=== PATIENT | female | born 1940 | race Caucasian/White ===

== ENCOUNTER → 2017-08-30 | Outpatient (CLI) | payer OTHER | END | disposition home or self-care (01) | LOC: SHCH 11:06 | PROVIDERS: ATTEND Internal Medicine Cardiovascular Disease | DX: I10 Essential (primary) hypertension (principal); I71.2 Thoracic aortic aneurysm, without rupture; I34.2 Nonrheumatic mitral (valve) stenosis; I35.1 Nonrheumatic aortic (valve) insufficiency; R09.89 Other specified symptoms and signs involving the circulatory and respiratory systems | CPT/HCPCS: 93306 ==

== ENCOUNTER → 2017-10-13 | Outpatient (CLI) | payer OTHER ==
[~2017-10-13] MED LIST: IOPAMIDOL-370 100 ML VIAL IV ONE
== END ==
LOC: OIH 07:49
PROVIDERS: ATTEND Internal Medicine Cardiovascular Disease
DX: N20.0 Calculus of kidney (principal); I71.2 Thoracic aortic aneurysm, without rupture
CPT/HCPCS: 71275; 74174; Q9967 ×2

== ENCOUNTER → 2018-05-19 | Outpatient (CLI) | payer OTHER | END | disposition home or self-care (01) | LOC: SHCH 14:49 | PROVIDERS: ATTEND Internal Medicine Cardiovascular Disease | DX: I35.1 Nonrheumatic aortic (valve) insufficiency (principal); I70.0 Atherosclerosis of aorta; I25.10 Atherosclerotic heart disease of native coronary artery without angina pectoris | CPT/HCPCS: 93306 ==

== ENCOUNTER 2018-06-24 11:12 | Observation (INO) | payer OTHER ==
[~2018-06-24] VITALS: Ht 165.1 cm; Wt 61.9 kg
[2018-06-24 11:47] LABS: BASOPHILS % (AUTO) 0.2 % (0.0-5.0); HEMATOCRIT 42.2 % (36-48); LYMPHOCYTES % (AUTO) 6.2 % (21.0-51.0); MEAN CORPUSCULAR HEMOGLOBIN 32.3 pg (27.0-33.0); MEAN CORPUSCULAR HGB CONC 32.5 g/dL (32.0-36.0); MEAN CORPUSCULAR VOLUME 99.5 fL (79-99); MONOCYTES % (AUTO) 5.5 % (3.0-13.0); NEUTROPHILS % (AUTO) 88.1 % (40.0-77.0); PLATELET COUNT (AUTO) 189 K/uL (130-400); RED BLOOD CELL COUNT(AUTO) 4.24 MIL/uL (4.00-5.50)
[2018-06-24 11:53] LABS: POTASSIUM 4.6 mmol/L (3.5-5.1)
[2018-06-24 11:58] LABS: ALBUMIN 4.1 g/dL (3.5-5.0); BILIRUBIN,TOTAL 0.9 mg/dL (0.2-1.0); TOTAL PROTEIN, SERUM 8.3 g/dL (6.0-8.3)
[2018-06-24] MEDS ORDERED: SODIUM CHLORIDE 0.9% 1000ML 1,000 ML IV ONE ×2 (12:09→15:51)
[2018-06-24 12:26] LABS: LIPASE 175 U/L (114-286)
[2018-06-24 12:28] LABS: ALCOHOL, BLOOD < 3 mg/dL (0-10); AMMONIA < 3 umol/L (11-32)
[2018-06-24 12:35] LABS: APPEARANCE,URINE Turbid (CLEAR); BILIRUBIN,URINE Negative (NEGATIVE); COLOR,URINE Dark Yellow (YELLOW); GLUCOSE, URINE (UA) Negative (NEGATIVE); KETONES,URINE Trace mg/dL (NEGATIVE); LEUKOCYTE ESTERASE ,URINE Moderate (NEGATIVE); NITRATE,URINE Negative (NEGATIVE); OCCULT BLOOD,URINE Negative (NEGATIVE); PH,URINE 5.5 (5.0-8.0); PROTEIN,URINE POS 2+ (NEGATIVE)
[2018-06-24 12:40] LABS: AMPHET/METH SCREEN,URINE NEGATIVE (NEGATIVE); BARBITURATE SCREEN, URINE NEGATIVE (NEGATIVE); BENZODIAZEPINES SCREEN,URINE NEGATIVE (NEGATIVE); CANNABINOID SCREEN,URINE NEGATIVE (NEGATIVE); COCAINE SCREEN,URINE NEGATIVE (NEGATIVE); OPIATE SCREEN,URINE NEGATIVE (NEGATIVE); PHENCYCLIDINE SCREEN,URINE NEGATIVE (NEGATIVE)
[2018-06-24 13:00] LABS: BACTERIA,URINE Few /HPF (None Seen)
[2018-06-24 13:01] LABS: RBC,URINE 51-100 /HPF (0-1)
[2018-06-24] MEDS ORDERED: CEFTRIAXONE SODIUM 1 GM ONE (13:42)
[2018-06-24] MEDS ORDERED: SODIUM CHLORIDE 0.9% 100 ML IV ONE ×2 (13:43→15:39)
[2018-06-24] MEDS ORDERED: ZOSYN 3.375GM+NS 50ML 50 ML IV ONE (15:38)
[2018-06-24] MEDS ORDERED: ENOXAPARIN SODIUM 30 MG/0.3 ML SQ ONE (15:38)
[2018-06-24] MEDS ORDERED: ACETAMINOPHEN 325 MG TAB PO PRN ×2 (15:45)
[2018-06-24] MEDS ORDERED: SODIUM CHLORIDE 0.9% 1000ML 1,000 ML IV SCH (16:00)
[2018-06-24] MEDS: ZOSYN 3.375GM+NS 50ML 50 ML IV SCH (16:00)
[2018-06-24 16:35] VITALS: BP 138/85
[2018-06-24] MEDS ORDERED: BACL10TA PO (16:46)
[2018-06-24] MEDS ORDERED: PRAV80TA21 PO (16:46)
[2018-06-24] MEDS ORDERED: AMLO5TAB7 PO (16:46)
[2018-06-24] MEDS ORDERED: LABE200T5 PO (16:46)
[2018-06-24] MEDS ORDERED: MONT10TA24 PO (16:46)
[2018-06-24] MEDS ORDERED: OMEP40CA37 PO (16:46)
[2018-06-24 20:00] VITALS: BP 134/84
[2018-06-25 00:05] VITALS: BP 120/75
[2018-06-25 04:03] VITALS: BP 146/90
[2018-06-25 05:05] LABS: HEMATOCRIT 34.1 % (36-48); MEAN CORPUSCULAR HEMOGLOBIN 33.7 pg (27.0-33.0); MEAN CORPUSCULAR HGB CONC 33.6 g/dL (32.0-36.0); MEAN CORPUSCULAR VOLUME 100.1 fL (79-99); PLATELET COUNT (AUTO) 179 K/uL (130-400); RED BLOOD CELL COUNT(AUTO) 3.41 MIL/uL (4.00-5.50); WHITE BLOOD COUNT (AUTO) 9.6 K/uL (4.8-10.8)
[2018-06-25 05:25] LABS: CREATININE 1.6 mg/dL (0.5-1.5)
[2018-06-25 07:00] VITALS: BP 146/91
[2018-06-25] MEDS: FAMOTIDINE/PF 20 MG/2 ML VIAL IV SCH (10:32)
[2018-06-25] MEDS: ENOXAPARIN SODIUM 30 MG/0.3 ML SQ SCH (10:34)
[2018-06-25 11:00] VITALS: BP 121/75
[2018-06-25] MEDS ORDERED: BACLOFEN 10 MG TABLET PO PRN (12:00)
[2018-06-25] MEDS: ZOSYN 3.375GM+NS 50ML 50 ML IV SCH ×2 (12:24→16:00)
[2018-06-25 16:00] VITALS: BP 119/73
[2018-06-25] MEDS ORDERED: GUAIFENESIN-CODEINE 5 ML SYRUP ONE (19:00)
[2018-06-25] MEDS ORDERED: GUAIFENESIN-CODEINE 5 ML SYRUP PO PRN (19:00)
[2018-06-25] MEDS ORDERED: ATORVASTATIN CALCIUM 40 MG TABLET PO SCH (21:00)
[2018-06-25 21:08] VITALS: BP 137/87
[2018-06-26 01:22] VITALS: BP 148/93
[2018-06-26 01:23] VITALS: BP 133/87
[2018-06-26 01:25] VITALS: BP 148/93
[2018-06-26] MEDS: ZOSYN 3.375GM+NS 50ML 50 ML IV SCH (03:24)
[2018-06-26 05:42] VITALS: BP 135/88
[2018-06-26] MEDS ORDERED: PANTOPRAZOLE SODIUM 40 MG TABLET.DR PO ONE (06:24)
[2018-06-26] MEDS ORDERED: PANTOPRAZOLE SODIUM 40 MG TABLET.DR PO SCH (07:30)
[2018-06-26 08:00] VITALS: BP 144/87
[2018-06-26] MEDS ORDERED: LABETALOL HCL 200 MG TABLET PO SCH (09:00)
[2018-06-26] MEDS ORDERED: AMLODIPINE BESYLATE 5 MG TAB PO SCH (09:00)
[2018-06-26] MEDS ORDERED: MONTELUKAST SODIUM 10 MG TAB PO SCH (09:00)
[2018-06-26] MEDS: FAMOTIDINE/PF 20 MG/2 ML VIAL IV SCH (09:23)
[2018-06-26] MEDS: ENOXAPARIN SODIUM 30 MG/0.3 ML SQ SCH (09:25)
[2018-06-26 11:51] VITALS: BP 144/79
== END 2018-06-26 13:38 | disposition home or self-care (01) ==
LOC: EDH 11:12 → EDHIP 14:45 → 3BH 16:40
PROVIDERS: ADMIT Internal Medicine; ATTEND Internal Medicine
DX: A41.9 Sepsis, unspecified organism (principal); R41.82 Altered mental status, unspecified; R65.20 Severe sepsis without septic shock; I10 Essential (primary) hypertension; E78.5 Hyperlipidemia, unspecified; E11.9 Type 2 diabetes mellitus without complications; I35.0 Nonrheumatic aortic (valve) stenosis; J45.909 Unspecified asthma, uncomplicated; Z79.899 Other long term (current) drug therapy
CPT/HCPCS: 36415 ×2; 70450; 71047; 80048; 80053; 80305; 81001; 82140; 83690; 84484; 85025; 85027; 87040 ×2; 87088; 93005; 96361 ×2; 96365; 96366 ×2; 96372 ×2; 99291; G0378 ×47; G0480; J0696; J1650 ×3; J2543 ×2; J3490 ×2; J7030 ×2

== ENCOUNTER → 2018-07-11 | Outpatient (CLI) | payer OTHER ==
[~2018-07-11] MED LIST changes: +AMLO5TAB7 PO; +BACL10TA PO; -IOPAMIDOL-370 100 ML VIAL IV ONE; +LABE200T5 PO; +MONT10TA24 PO; +OMEP40CA37 PO; +PRAV80TA21 PO
== END | disposition home or self-care (01) ==
LOC: RAH 12:24
PROVIDERS: ATTEND Family Medicine
DX: Z12.31 Encounter for screening mammogram for malignant neoplasm of breast (principal)
CPT/HCPCS: 77067

== ENCOUNTER 2018-10-05 18:46 | Emergency (ER) | payer OTHER ==
[~2018-10-05 18:46] MED LIST changes: +ALBU8.5H8 IH; -AMLO5TAB7 PO; -BACL10TA PO; +FLUT15.88 NS; -LABE200T5 PO; -OMEP40CA37 PO
[2018-10-05 19:42] LABS: EOSINOPHILS % (AUTO) 1.9 % (0.0-8.0); HEMATOCRIT 27.2 % (36-48); LYMPHOCYTES % (AUTO) 4.3 % (21.0-51.0); MEAN CORPUSCULAR HEMOGLOBIN 31.4 pg (27.0-33.0); MEAN CORPUSCULAR HGB CONC 33.2 g/dL (32.0-36.0); MEAN CORPUSCULAR VOLUME 94.6 fL (79-99); MONOCYTES % (AUTO) 5.7 % (3.0-13.0); NEUTROPHILS % (AUTO) 88.1 % (40.0-77.0); PLATELET COUNT (AUTO) 438 K/uL (130-400); RED BLOOD CELL COUNT(AUTO) 2.88 MIL/uL (4.00-5.50); RED CELL DISTRIBUTION WIDTH 15.8 % (11.0-15.5); WHITE BLOOD COUNT (AUTO) 14.5 K/uL (4.8-10.8)
[2018-10-05 20:11] LABS: INR 1.05 (0.85-1.15); PARTIAL THROMBOPLASTIN TIME 27.7 SEC (26.3-35.5)
[2018-10-05 20:13] LABS: CREATININE 1.8 mg/dL (0.5-1.5); POTASSIUM 4.8 mmol/L (3.5-5.1)
[2018-10-05 20:17] LABS: ALBUMIN 2.5 g/dL (3.5-5.0); BILIRUBIN,TOTAL 0.3 mg/dL (0.2-1.0); TOTAL PROTEIN, SERUM 6.2 g/dL (6.0-8.3)
[2018-10-05 20:48] LABS: B-TYPE NATRIURETIC PEPTIDE 622 pg/mL (0-100)
== END 2018-10-06 00:16 | disposition home or self-care (01) ==
LOC: EDH 18:46
DX: J90 Pleural effusion, not elsewhere classified (principal); R06.00 Dyspnea, unspecified; I10 Essential (primary) hypertension; I25.10 Atherosclerotic heart disease of native coronary artery without angina pectoris; E78.5 Hyperlipidemia, unspecified; Z95.1 Presence of aortocoronary bypass graft
CPT/HCPCS: 36415; 71045; 80053; 82550; 83880; 84484; 85025; 85610; 85730; 93005